=== PATIENT | female | born 2005 | race Caucasian/White ===

== ENCOUNTER 2025-09-21 16:21 | Outpatient (OUT) | payer BC, SELFPAY ==
--- OUTSIDE RECORDS SUMMARY | 2025-09-08 14:00 | XMS_ITS | Encounter Summary ---
Author Organization [facility] Address [address] [place] [address] Care Team Providers Care Hotel Concierge Name Role Phone Unavailable Primary Care Provider Unavailabl e Encounter Details DateTypeDepartmentCare Team (Latest Contact Info)Tqxedghvcbe18/13/2025 2:00 PM ESTAncillary Procedure [facility] [address] [address] Missed menses; Positive urine test ([facility]) Social History Tobacco UseTypesPacks/DayYears UsedDateSmoking Tobacco: NeverSmokeless Tobacco: NeverEstimated Date of XyocrpysEwpckrkfOqi08/24/2026Based on last menstrual period of 07/13/2025Sex and Gender InformationValueDate RecordedSex Assigned at BirthNot on fileLegal UojFztgii76/15/2023 6:59 PM EDTGender Identity Not on fileSexual OrientationNot on filedocumented as of this encounter Plan of Treatment DateTypeDepartmentCare Team (Latest Contact Info)Qqduxzdzkug53/16/2025 1:20 PM ESTRoutine [facility] [address] [address] Octavio Leo DO [address] [place], [facility] documented as of this encounter Procedures Procedure NamePriorityDate/TimeAssociated DiagnosisCommentsUS OB TRANSVAGINAL Rbgixdh7309/08/2025 2:49 PM EST Missed menses Positive urine test ([facility]) documented in this encounter Results * US OB transvaginal (09/08/2025 2:49 PM EST)Anatomical RegionLateralityModality BodyUltrasoundSpecimen (Source)Anatomical Location / LateralityCollection Method / VolumeCollection TimeReceived Time09/14/2025 10:40 AM EST Impressions 09/14/2025 10:48 AM EST Findings consistent with a live intrauterine gestation, current sonographic age of 8 weeks and 0 days resulting in an estimated date of delivery of April 20, 2026. TRANSCRIBED BY: ? ELECTRONICALLY SIGNED BY: Edil Mercado MD Narrative 09/14/2025 10:48 AM EST FINDINGS: A single intrauterine gestational sac is present. ??No subchorionic hemorrhage. ??A single pole is present. Normal heart rate at 165 ??beats per minute. ??Yolk sac also is seen. ?? Current sonographic age is ??8 weeks and 0 days based on the crown-rump length measurement of 1.6 ??cm. ??Based on this age, current estimated date of delivery is April 20, 2026. ??No pelvic fluid or adnexalmass present. ??Cervical length is 4.7 ??cm. Procedure Note Edil Mercado MD - 09/14/2025 FINDINGS: A single intrauterine gestational sac is present. No subchorionichemorrhage. A single pole is present. Normal heart rate at165 beats per minute. Yolk sac also is seen. Current sonographic ageis 8 weeks and 0 days based on the crown-rump length measurement of 1.6cm. Based on this age, current estimated date of delivery is March. No pelvic fluid or adnexal mass present. Cervical length is 4.7cm. IMPRESSION: Findings consistent with a live intrauterine gestation, currentsonographic age of 8 weeks and 0 days resulting in an estimated date ofdelivery of April 20, 2026. TRANSCRIBED BY: ELECTRONICALLY SIGNED BY: Edil Mercado MD Authorizing ProviderResult TypeResult StatusCorey Ahmet DOIMG OB US PROCEDURES Final Result documented in this encounter Visit Diagnoses Diagnosis Missed menses Positive urine test ([facility]) documented in this encounter
--- OUTSIDE RECORDS SUMMARY | 2025-09-08 14:30 | XMS_ITS | Encounter Summary ---
Author Organization [facility] Address [address] [place] [address] Care Team Providers Care Inspector Wire Rope Name Role Phone Unavailable Primary Care Provider Unavailabl e Reason for Visit * ReasonCommentsRoutine Visit Encounter Details DateTypeDepartmentCare Team (Latest Contact Info)Ytjftqzdqvi85/13/2025 2:30 PM ESTInitial [facility] [address] [place] [address] [place] [address] GA: 8w1d Social History Tobacco UseTypesPacks/DayYears UsedDateSmoking Tobacco: NeverSmokeless Tobacco: Never Tobacco Cessation:Counseling Given: Not Answered Estimated Date of YuuullykUoydjrkmHzx44/24/2026ased on last menstrual period of 07/13/2025Sex and Gender InformationValueDate RecordedSex Assigned at BirthNot on fileLegal OhmWoiwjq18/15/2023 6:59 PM EDTGender IdentityNot on file Sexual OrientationNot on filedocumented as of this encounter Last Filed Vital Signs Vital SignReadingTime TakenCommentsBlood Ndicumnh368/80111/08/2024 3:09 PM EST Pulse--Temperature--Respiratory Rate--Oxygen Saturation--Inhaled Oxygen Concentration--Rkfbjq77.2 kg (168 lb)09/08/2025 3:09 PM ESTHeight--Body Mass Index--documented in this encounter Progress Notes * Cary Watkins - 09/08/2025 2:30 PM EST Reason for Appointment: Patient ID: Nazia Cheng is a 20 y.o. female who presents for Routine Visit Patient presents today for a Nurse OB Intake appointment. Patient is 8w1d with a Estimated Date of Delivery: 04/19/26 OB History Para Term AB Living 2 1 SAB IAB Ectopic Multiple Live Births # Outcome Date GA Lbr Joseph/2nd Weight Sex Type Anes PTL Lv 2 Current 1 AB Current Medications: currently has no medications in their medication list. Medical History: Active Ambulatory Problems Diagnosis Date Noted No Active Ambulatory Problems Resolved Ambulatory Problems Diagnosis Date Noted No Resolved Ambulatory Problems No Additional Past Medical History No family history on file. Social History Tobacco Use Smoking status: Never Smokeless tobacco: Never Vaping Use Vaping status: Every Day Substances: Nicotine, THC Substance Use Topics Alcohol use: Not on file Drug use: Yes Types: Marijuana History reviewed. No pertinent surgical history. No Known Allergies Vitals: There is no height or weight on file to calculate BMI. BP: 120/80 Patient's last menstrual period was 07/13/2025. Assessment/Plan Diagnoses and all orders for this visit: Missed menses - US OB transvaginal; Future - Type and screen; Future - ABO/Rh; Future - CBC and differential - Hemoglobin A1c - RPR - Rubella antibody, IgG - Hepatitis B surface antigen - Hepatitis C antibody - HIV-1 and HIV-2 antibodies - Urine culture - POCT , urine manually resulted - POCT urinalysis dipstick manually resulted Positive urine test ([facility]) - US OB transvaginal; Future , unspecified gestational age ([facility]) - Type and screen; Future - ABO/Rh; Future - CBC and differential - Hemoglobin A1c - RPR - Rubella antibody, IgG - Hepatitis B surface antigen - Hepatitis C antibody - HIV-1 and HIV-2 antibodies - Rapid drug screen, urine; Future Encounter for supervision of normal first in first trimester ([facility]) - Rapid drug screen, urine; Future Nurse Note: OB Intake: Patient presents today for first OB visit. Patients history has been reviewed in great detail including any potential risks. Patient signed consent forms and patient desires testing in both trimesters. Patient currently has no complaints and has been advised to drink 6-8 glasses of water a day, eatno raw or undercooked meat, and stay away from [facility]. Patient has also been advised to not change litter boxes and eat 6 small meals a day. Patient has been consulted regarding the do's and don'ts ofpregnancy. Patient was given labs and all questions and concerns were answered. Follow Up: Patient is to return in 4 weeks for routine OB appointment. Follow Up: Patient is to have labs drawn at directed and return to office for initial OB appointment with provider. Patient may call office as needed with any concerns or questions. Nurse Visit Completed by: Cary Watkins documented in this encounter Plan of Treatment DateTypeDepartmentCare Team (Latest Contact Info)Yhqwffewkcu07/16/2025 1:20 PM ESTRoutine [facility] [address] [address] Octavio Leo DO [address] [place] [address] NameTypePriorityAssociated DiagnosesOrder ScheduleType and screenLabRoutine Missed menses , unspecified gestational age ([facility]) Expected: 09/08/2025 (Approximate), Expires: 6ABO/RhLabRoutine Missed menses , unspecified gestational age ([facility]) Expected: 09/08/2025 (Approximate), Expires: 09/08/2026BC and differentialLab Routine Missed menses , unspecified gestational age ([facility]) Ordered: 09/08/2025Hemoglobin C7wHmhIjckeip Missed menses , unspecified gestational age ([facility]) Ordered: 09/08/2025RPRLabRoutine Missed menses , unspecified gestational age ([facility]) Ordered: 09/08/2025Rubella antibody, IgGLabRoutine Missed menses , unspecified gestational age ([facility]) Ordered: 09/08/2025Hepatitis B surface antigenLabRoutine Missed menses , unspecified gestational age ([facility]) Ordered: 09/08/2025Hepatitis C antibodyLabRoutine Missed menses , unspecified gestational age ([facility]) Ordered: 09/08/2025HIV-1 and HIV-2 antibodiesLabRoutine Missed menses , unspecified gestational age ([facility]) Ordered: 09/08/2025Urine cultureMicrobiologyRoutine Missed menses Ordered: 09/08/2025Rapid drug screen, urineLabRoutine , unspecified gestational age ([facility]) Encounter for supervision of normal first in first trimester ([facility]) Expected: 09/08/2025 (Approximate), Expires: 09/08/2026documented as of this encounter Procedures Procedure NamePriorityDate/TimeAssociated DiagnosisCommentsPOCT , URINE Luxkijo1509/08/2025 3:09 PM EST Missed menses POCT URINALYSIS VINVADEQLncxstt87/13/2025 3:09 PM EST Missed menses documented in this encounter Results * POCT urinalysis dipstick manually resulted (09/08/2025 3:09 PM EST)Component ValueRef RangeTest MethodAnalysis TimePerformed AtPathologist SignatureColor, UAYellowClarity, UAClearGlucose, UANegativeNegative - 2000(110) ++++ mg/dL Bilirubin, UANegativeNegative - 4(70) +++ mg/dLKetones, UANegativeNegative - 160(16) ++++ mg/dLSpec Grav, UA1.0101 - 1.03Blood, UANegativeNegative - 50 Primitivo/mcLpH, UA6.05 - 9Protein, UANegativeNegative - 2000(20) ++++ mg/dL Urobilinogen, UA1.00.2 - 12 mg/dLLeukocytes, UANegativeNegative - 500+++ Young/mcLNitrite, UANegativeNegative - PositiveSpecimen (Source)Anatomical Location / LateralityCollection Method / VolumeCollection TimeReceived Time Urine09/08/2025 3:09 PM EST Narrative Authorizing ProviderResult TypeResult StatusCorey Ahmet DOPOINT OF CARE TEST ENTER/EDIT ORDERABLESFinal Result * (ABNORMAL) POCT , urine manually resulted (09/08/2025 3:09 PM EST) ComponentValueRef RangeTest MethodAnalysis TimePerformed AtPathologist SignaturePreg Test, UrPositiveNegativeSpecimen (Source)Anatomical Location / LateralityCollection Method / VolumeCollection TimeReceived TimeUrine 09/08/2025 3:09 PM EST Narrative Authorizing ProviderResult TypeResult StatusCorey Ahmet DOPOINT OF CARE TEST ENTER/EDIT ORDERABLESFinal Result * US OB transvaginal (09/08/2025 2:49 PM [...] Diagnoses Diagnosis Missed menses Positive urine test ([facility]) Missed menses Positive urine test ([facility]) , unspecified gestational age ([facility]) Encounter for supervision of normal first in first trimester ([facility]) documented in this encounter
--- OUTSIDE RECORDS SUMMARY | 2025-09-21 16:24 | XMS_ITS | Clinical Summary ---
Author Organization [facility] Address [address] [place] [address] Care Team Providers Care Caustic Liquor Maker Name Role Phone Unavailable Primary Care Provider Unavailabl e Allergies No known active allergies Medications No known medications Encounters DateTypeDepartmentCare XdfpApcfsbzpamn13/13/2025 2:30 PM ESTInitial [facility] [place] [address] GA: 8w1d09/08/2025 2:00 PM ESTAncillary [place] [address] Missed menses; Positive urine test ([facility])from Last 3 Months Social History Tobacco UseTypesPacks/DayYears UsedDateSmoking Tobacco: NeverSmokeless Tobacco: Never Tobacco Cessation:Counseling Given: Not Answered Estimated Date of IufhbwpvZfcorjeaNms04/24/2026Based on last menstrual period of 07/13/2025Sex and Gender InformationValueDate RecordedSex Assigned at BirthNot on fileLegal WrxQypuzw36/15/2023 6:59 PM EDTGender IdentityNot on file Sexual OrientationNot on file Last Filed Vital Signs Vital SignReadingTime TakenCommentsBlood Yuzcqxlq178/80111/08/2024 3:09 PM EST Pulse--Temperature--Respiratory Rate--Oxygen Saturation--Inhaled Oxygen Concentration--Gzpdaw45.2 kg (168 lb)09/08/2025 3:09 PM ESTHeight--Body Mass Index-- Plan of Treatment DateTypeDepartmentCare Team (Latest Contact Info)Foxxarzlusb68/16/2025 1:20 PM ESTRoutine [facility] [address] [place] [id number] Octavio Leo, [address] [place] [address] Goals GoalPatient Goal TypeAssociated ProblemsRecent ProgressPatient-Stated?Author Reminders Care PlanOB RemindersNoOpen Scheduling, Background Procedures Procedure NamePriorityDate/TimeAssociated DiagnosisCommentsPOCT URINALYSIS IKXPQWGPXaqowun77/13/2025 3:09 PM EST Missed menses POCT , JROCCXpnxqfm18/13/2025 3:09 PM EST Missed menses OB BKWEOLMNZGGJRvnhcir76/13/2025 2:49 PM EST Missed menses Positive urine test ([facility]) from Last 3 Months Results * (ABNORMAL) POCT , urine manually resulted (09/08/2025 3:09 PM EST) ComponentValueRef RangeTest MethodAnalysis TimePerformed AtPathologist SignaturePreg Test, UrPositiveNegativeSpecimen (Source)Anatomical Location / LateralityCollection Method / VolumeCollection TimeReceived TimeUrine 09/08/2025 3:09 PM EST Narrative Authorizing ProviderResult TypeResult StatusCorey Ahmet DOPOINT OF CARE TEST ENTER/EDIT ORDERABLESFinal Result * POCT urinalysis dipstick manually resulted (09/08/2025 3:09 PM EST)Component ValueRef RangeTest MethodAnalysis TimePerformed AtPathologist SignatureColor, UAYellowClarity, UAClearGlucose, UANegativeNegative - 2000(110) ++++ mg/dL Bilirubin, UANegativeNegative - 4(70) +++ mg/dLKetones, UANegativeNegative - 160(16) ++++ mg/dLSpec Grav, UA1.0101 - 1.03Blood, UANegativeNegative - 50 Primitivo/mcLpH, UA6.05 - 9Protein, UANegativeNegative - 1999(20) ++++ mg/dL Urobilinogen, UA1.00.2 - 12 mg/dLLeukocytes, UANegativeNegative - 500+++ Young/mcLNitrite, UANegativeNegative - PositiveSpecimen (Source)Anatomical Location / LateralityCollection Method / VolumeCollection TimeReceived Time Urine09/08/2025 3:09 PM EST Narrative Authorizing ProviderResult TypeResult StatusCorey [facility] DOPOINT OF CARE TEST ENTER/EDIT ORDERABLESFinal Result [...] Ahmet DOIMG OB US PROCEDURES Final Result from Last 3 Months Additional Health Concerns Active ProblemsNoted DateDiagnosed DateOB Zgpoycrur59/14/2025 Insurance
[2025-09-21 17:02] LABS: Hematocrit 35.5 % (36.0-48.0); Hemoglobin 11.9 g/dL (12.0-16.0); Immature Granulocytes Abs Auto 0.05 10^3/uL (0.00-0.03); Immature Granulocytes Pct Auto 0.4 % (0.0-0.5); Lymphocytes Absolute Auto 3.2 10^3/uL (1.2-3.8); Mean Corpuscular HGB Conc 33.5 g/dL (29.9-35.2); Mean Corpuscular Hemoglobin 30.7 pg (26.7-34.0); Mean Corpuscular Volume 91.5 fL (81.0-99.0); Platelet Count 277 10^3/uL (150-450); Red Blood Count 3.88 10^6/uL (4.20-5.40); White Blood Count 12.2 10^3/uL (4.0-11.0)
[2025-09-21 17:14] LABS: Cannabinoid Screen Urine POSITIVE (NEGATIVE); Methamphetamines Screen Urine NEGATIVE (NEGATIVE); Tricyclic Antidepressant Urine NEGATIVE (NEGATIVE)
== END 2025-09-21 16:22 | disposition home or self-care (01) ==
LOC: LAB 16:21
PROVIDERS: Visit Provider Obstetrics & Gynecology
DX: Z34.90 Encounter for supervision of normal pregnancy, unspecified, unspecified trimester (principal); N92.6 Irregular menstruation, unspecified
CPT/HCPCS: 36415; 80307; 80349; 83036; 85025; 86592; 86762; 86803; 86850; 86900; 86901; 87086; 87340; 87389